=== PATIENT | female | born 1980 | race Caucasian/White ===

== ENCOUNTER 2018-08-26 06:56 | Inpatient (IN) | payer OTHER ==
[~2018-08-26] VITALS: Ht 157.5 cm; Wt 101.8 kg
[2018-08-26] VITALS (26 sets, daily range): BP systolic 87–145; BP diastolic 52–91; PULSE 62–96; TEMP 98.2–98.4
[~2018-08-26 06:56] MED LIST: MOTRIN 800800 MG/TAB PO; PERCOCET 325 MG1 TA2 PO; PRENATAL VITAMI1 TAB PO
[2018-08-26] MEDS ORDERED: FERROUS SU325 MG/TAB PO (07:21)
[2018-08-26 08:44] LABS: BASO % 0.2 % (0.0-2.0); EOS % 0.4 % (0-4.0); GRAN # 8.2 (1.4-6.5); LYMPH # 1.7 (1.2-3.4); LYMPH % 15.8 % (20.0-51.0); MEAN CELL VOLUME 89 fl (80.0-100.0); MEAN CORPUSCULAR HEMOGLOBIN 30 pg (27.0-31.0); MEAN CORPUSCULAR HGB CONC 33 g/dl (33.0-37.0); MEAN PLATELET VOLUME 12.2 fl (7.4-10.4); MONO # 0.7 (0.1-0.6); MONO % 6.1 % (1.7-9.3); PLATELET COUNT 141 K/mm3 (130-400); RED BLOOD COUNT 4.38 M/mm3 (4.10-5.30); REDCELL DISTRIBUTION WIDTH-CV 15.2 % (11.5-14.5)
[2018-08-27 01:20] VITALS: BP 133/86; PULSE 80; TEMP 98.5
[2018-08-27 08:20] VITALS: BP 120/81; PULSE 78; TEMP 97.5
== END 2018-08-27 14:05 | disposition home or self-care (01) | DRG 807 ==
LOC: LDR 06:56 → OB 06:56 → LDR 08:50 → OB 16:16
PROVIDERS: Obstetrics & Gynecology
PROC: 10E0XZZ Delivery of Products of Conception, External Approach (ICD-10-PCS; principal; 2018-08-26)
PROC: 3E033VJ Introduction of Other Hormone into Peripheral Vein, Percutaneous Approach (ICD-10-PCS; 2018-08-26)
PROC: 10907ZC Drainage of Amniotic Fluid, Therapeutic from Products of Conception, Via Natural or Artificial Opening (ICD-10-PCS; 2018-08-26)
PROC: 0HQ9XZZ Repair Perineum Skin, External Approach (ICD-10-PCS; 2018-08-26)
DX: O70.0 First degree perineal laceration during delivery (principal); Z37.0 Single live birth; Z3A.39 39 weeks gestation of pregnancy; O69.81X0 Labor and delivery complicated by cord around neck, without compression, not applicable or unspecified; Z28.21 Immunization not carried out because of patient refusal; O99.214 Obesity complicating childbirth
CPT/HCPCS: J2590; J7120